=== PATIENT | male | born 1995 | race African-American/Black ===

== ENCOUNTER 2017-04-24 18:47 | Emergency (ER) | payer OTHER ==
[~2017-04-24] VITALS: Ht 185.4 cm; Wt 68.0 kg
[2017-04-24 18:59] VITALS: BP 110/65
[2017-04-24] MEDS ORDERED: PENICILLIN VK500 M1 PO (19:16)
[2017-04-24] MEDS ORDERED: MOBIC15 MG PO (19:17)
== END 2017-04-24 19:31 | disposition home or self-care (01) ==
LOC: ER 18:47
DX: K02.9 Dental caries, unspecified (principal); F10.99 Alcohol use, unspecified with unspecified alcohol-induced disorder; F12.10 Cannabis abuse, uncomplicated

== ENCOUNTER 2019-10-08 21:18 | Emergency (ER) | payer OTHER ==
[~2019-10-08] VITALS: Ht 188 cm; Wt 72.6 kg
[~2019-10-08 21:18] MED LIST: MOBIC15 MG PO; PENICILLIN VK500 M1 PO
[2019-10-08 21:21] VITALS: BP 122/77
[2019-10-08] MEDS ORDERED: NORCO 5-325 TA1 EAC1 PO (21:52)
[2019-10-08] MEDS ORDERED: PENICILLIN VK500 M1 PO (21:52)
== END 2019-10-08 22:03 | disposition home or self-care (01) ==
LOC: ER 21:18
DX: K04.7 Periapical abscess without sinus (principal)